=== PATIENT | female | born 1955 | race Caucasian/White ===

== ENCOUNTER 2017-01-28 15:56 | Emergency (ER) | payer OTHER, MEDICARE, MEDICAID ==
[2017-01-28] MEDS ORDERED: KETOROLAC TROMETHAMINE 60 MG/2 ML SDV IM ONE (17:32)
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
[2017-01-28 19:24] VITALS: BP 177/93
== END 2017-01-28 19:25 | disposition home or self-care (01) ==
LOC: ER 15:56
DX: Z04.1 Encounter for examination and observation following transport accident (principal); M25.551 Pain in right hip; G89.29 Other chronic pain; F17.210 Nicotine dependence, cigarettes, uncomplicated; I10 Essential (primary) hypertension; Z98.84 Bariatric surgery status; Z88.8 Allergy status to other drugs, medicaments and biological substances
CPT/HCPCS: 99283; 96374; 73502; J1885

== ENCOUNTER 2017-06-01 05:32 | Emergency (ER) | payer OTHER, MEDICARE, MEDICAID | END 2017-06-01 05:34 | disposition left against medical advice (07) | LOC: ER 05:32 | DX: Z53.21 Procedure and treatment not carried out due to patient leaving prior to being seen by health care provider (principal) ==

== ENCOUNTER 2018-02-16 22:54 | Inpatient (IN) | payer MEDICARE, MEDICAID ==
--- NOTE | 2018-02-16 23:02 | ER Document Report ---
ED General - General Stated Complaint: UNRESPONSIVE Time Seen by Provider: 02/16/18 23:00 Mode of Arrival: Medic Information source: Patient, Emergency Med Personnel Cannot obtain history due to: Altered mental status Notes: 62-year-old female presents from home with concerns for altered mental status. Patient was noted to have been found pale minimally responsive by family patient denies any fevers or chills denies any pain, when she was initially found she was only responsive to pain stimuli she was satting 95% on room air having shallow respirations. EMS placed the patient on nasal cannula and nonrebreather Upon arrival patient is noted to have nasal trumpet in does answer my questions appropriately but is quite drowsy she is protecting her airway Review of patient's home medications in her system to no use of oxycodone Xanax Abilify ems unable ot find any bottles except for vit d, but patient did fill her meds today. pt denies taking anything tonight except her neurontin. denies any SI TRAVEL OUTSIDE OF THE [place] IN LAST 30 DAYS: No - HPI Onset: Just prior to arrival Onset/Duration: Sudden Quality of pain: No pain Severity: Moderate Pain Level: Denies Associated symptoms: Slow to respond, Weakness Exacerbated by: Denies Relieved by: Denies Similar symptoms previously: No Recently seen / treated by doctor: No - Related Data Allergies/Adverse Reactions: diphenhydramine HCl [From Benadryl] Allergy (Mild, Verified 01/11/13 11:53) leg cramps haloperidol [From Haldol] Adverse Reaction (Mild, Verified 01/11/13 11:53) leg cramps haloperidol lactate [From Haldol] Adverse Reaction (Mild, Verified 01/11/13 11: 53) leg cramps Past Medical History - Social History Smoking Status: Current Every Day Smoker Cigarette use (# per day): Yes Chew tobacco use (# tins/day): No Smoking Education Provided: No Family History: Arthritis, CAD, CVA, Hyperlipidemia, Hypertension, Malignancy, Thyroid Disfunction - Past Medical History Cardiac Medical History: Reports: Hx Hypertension Denies: Hx Heart Attack Pulmonary Medical History: Denies: Hx Asthma Neurological Medical History: Reports: Hx Migraine. Denies: Hx Seizures Renal/ Medical History: Reports: Hx Ovarian Cysts. Denies: Hx Peritoneal Dialysis GI Medical History: Reports: Hx Colonoscopy, Hx Endoscopy. Denies: Hx Hiatal Hernia, Hx Ulcer Musculoskeltal Medical History: Reports Hx Arthritis, Reports Hx Musculoskeletal Deformity, Reports Hx Musculoskeletal Trauma Psychiatric Medical History: Reports: Hx Anxiety, Hx Attention Deficit Hyperactivity Disorder, Hx Bipolar Disorder, Hx Depression Traumatic Medical History: Reports: Hx Fractures Past Surgical History: Reports: Hx Abdominal Surgery - gastric bypass, Hx Adenoidectomy, Hx Appendectomy, Hx Breast Surgery - reduction, Hx Section - x 2, Hx Cholecystectomy, Hx Gastric Bypass Surgery, Hx Hysterectomy, Hx Orthopedic Surgery - knees x 2, Hx Tonsillectomy. Denies: Hx Mastectomy, Hx Open Heart Surgery, Hx Pacemaker - Immunizations Immunizations up to date: No Hx Diphtheria, Pertussis, Tetanus Vaccination: Yes Review of Systems - Review of Systems Notes: REVIEW OF SYSTEMS: Per EMS CONSTITUTIONAL : Denies fever, chills, or sweats. Denies recent illness. EENT: Denies eye, ear, throat, or mouth pain or symptoms. Denies nasal or sinus congestion or discharge. Denies throat, tongue, or mouth swelling or difficulty swallowing. CARDIOVASCULAR: Denies chest pain. Denies palpitations or racing or irregular heart beat. Denies ankle edema. RESPIRATORY: Difficulty breathing GASTROINTESTINAL: Denies abdominal pain or distention. Denies nausea, vomiting , or diarrhea. Denies blood in vomitus, stools, or per rectum. Denies black, tarry stools. Denies constipation. GENITOURINARY: Denies difficulty urinating, painful urination, burning, frequency, blood in urine, or discharge. FEMALE GENITOURINARY: Denies vaginal bleeding, heavy or abnormal periods, irregular periods. Denies vaginal discharge or odor. MUSCULOSKELETAL: Denies back or neck pain or stiffness. Denies joint pain or swelling. SKIN: Denies rash, lesions or sores. HEMATOLOGIC : Denies easy bruising or bleeding. LYMPHATIC: Denies swollen, enlarged glands. NEUROLOGICAL: Patient is quite drowsy PSYCHIATRIC: Denies anxiety or stress. Denies depression, suicidal ideation, or homicidal ideation. ALL OTHER SYSTEMS REVIEWED AND NEGATIVE. PHYSICAL EXAMINATION: GENERAL: Patient is noted to be drowsy but is alert and oriented when asked questions. HEAD: Atraumatic, normocephalic. EYES: Pupils equal round and reactive to light, extraocular movements intact, conjunctiva are normal. ENT: Nares patent, oropharynx clear without exudates. Moist mucous membranes. NECK: Normal range of motion, supple without lymphadenopathy LUNGS: Breath sounds clear to auscultation bilaterally and equal. No wheezes rales or rhonchi. HEART: Regular rate and rhythm without murmurs ABDOMEN: Soft, nontender, nondistended abdomen. No guarding, no rebound. No masses appreciated. Female : deferred Musculoskeletal: Normal range of motion, no pitting or edema. No cyanosis. NEUROLOGICAL: Cranial nerves grossly intact. Normal speech, normal gait. Normal sensory, motor exams GCS 10 PSYCH: Normal mood, normal affect. SKIN: Warm, Dry, normal turgor, no rashes or lesions noted. Dictation was performed using [employer] voice recognition software Physical Exam - Vital signs Vitals: Resp Pulse Ox 18 100 02/16/18 22:58 02/16/18 22:58 Course - Re-evaluation Re-evalutation: 02/16/18 23:07 bs is 162, pt will have septic workup and ct head to rule out any abnormalities but with improvement of mentation probably medication related. 02/16/18 23:32 Daughter presents noting that patient has had multiple similar episodes in the past due to overdose both intentional and accidental. 02/17/18 02:07 pts workup benign except for uti, i beleive this is still secondary to overdose as patient admits to taking pills. awaiting call back from hopsitalist. - Vital Signs Vital signs: Temp Pulse Resp BP Pulse Ox 14 106/73 100 02/17/18 01:00 02/17/18 01:00 02/17/18 01:00 - Laboratory Result Diagrams: 02/16/18 23:02 02/16/18 23:02 Laboratory results interpreted by me: 02/16/18 02/16/18 02/16/18 23:02 23:02 23:02 RDW 14.3 H VBG pH 7.21 L VBG pCO2 67.0 H* Chloride 108 H BUN 22 H Est GFR ( Amer) 54 L Est GFR (Non-Af Amer) 45 L Glucose 48 L AST 47 H Urine Protein Urine Glucose (UA) Urine Blood Urine Nitrite Ur Leukocyte Esterase Salicylates < 1.0 L Acetaminophen < 10 L 02/17/18 00:17 RDW VBG pH VBG pCO2 Chloride BUN Est GFR ( Amer) Est GFR (Non-Af Amer) Glucose AST Urine Protein 30 H Urine Glucose (UA) 150 H Urine Blood SMALL H Urine Nitrite POSITIVE H Ur Leukocyte Esterase TRACE H Salicylates Acetaminophen Discharge - Discharge Clinical Impression: Overdose Qualifiers: Encounter type: initial encounter Injury intent: undetermined intent Qualified Code(s): T50.904A - Poisoning by unspecified drugs, medicaments and biological substances, undetermined, initial encounter UTI (urinary tract infection) Qualifiers: Urinary tract infection type: site unspecified Hematuria presence: without hematuria Qualified Code(s): N39.0 - Urinary tract infection, site not specified Condition: Fair Disposition: ADMITTED INPATIENT Admitting Provider: Hospitalist Unit Admitted: ICU Referrals: AYALA KNAPP MD [ACTIVE STAFF] - Follow up as needed
[2018-02-16 23:32] LABS: VENOUS BLOOD BASE EXCESS -2.9 mmol/L; VENOUS BLOOD HCO3 26.4 mmol/L (20-32); VENOUS BLOOD PH 7.21 (7.30-7.42)
[2018-02-16 23:35] LABS: ABSOLUTE BASOPHILS # (AUTO) 0.1 10^3/uL (0.0-0.2); ABSOLUTE EOSINOPHILS # (AUTO) 0.1 10^3/uL (0.0-0.6); ABSOLUTE LYMPHOCYTES (AUTO) 1.7 10^3/uL (0.5-4.7); ABSOLUTE MONOCYTES (AUTO) 0.7 10^3/uL (0.1-1.4); ABSOLUTE NEUT (AUTO) 3.4 10^3/uL (1.7-8.2); BASOPHILS % (AUTO) 1.1 % (0-2); EOSINOPHILS % (AUTO) 1.5 % (0-6); HEMATOCRIT 40.1 % (36.0-47.0); HEMOGLOBIN 13.7 g/dL (12.0-15.5); LYMPHOCYTES % (AUTO) 28.4 % (13-45); MEAN CORPUSCULAR HEMOGLOBIN 31.3 pg (27.0-33.4); MEAN CORPUSCULAR HGB CONC 34.2 g/dL (32.0-36.0); MEAN CORPUSCULAR VOLUME 92 fl (80-97); MONOCYTES % (AUTO) 12.2 % (3-13); PLATELET COUNT 252 10^3/uL (150-450); RED BLOOD COUNT 4.37 10^6/uL (3.72-5.28); RED CELL DISTRIBUTION WIDTH 14.3 % (11.5-14.0); SEGMENTED NEUTROPHILS % (AUTO) 56.8 % (42-78); TOTAL CELLS COUNTED % (AUTO) 100 %
--- NOTE | 2018-02-16 23:38 | RADIOLOGY REPORT (SQ) ---
PROCEDURE: CT of the head without contrast HISTORY: altered Indication: Altered mental status Comparison: 02/22/2015 Technique: CT of the head was done without intravenous contrast was done in the orthogonal planes. This exam was performed according to our departmental dose-optimization program, which includes automated exposure control, adjustment of the mA and/or KV according to the patient's size and/or use of iterative reconstruction technique. FINDINGS: There is no intracranial hemorrhage, midline shift mass effect or acute focal infarct. There is mild chronic small vessel white matter ischemic change in the bilateral cerebral hemispheres in a periventricular distribution If clinical concern exists regarding an acute ischemic/vascular pathology being responsible for patient's symptomatology, an MRI of the brain is more sensitive than the current study, in ruling out such a possibility. There is good morales/white matter differentiation. The ventricular system is normal. The mastoid air cells are unremarkable. The patient is intubated . The paranasal sinuses are unremarkable . There is no visualization of acute fractures involving the calvarium or the skull base. IMPRESSION: There is no acute intracranial abnormality. There is mild chronic small vessel white matter ischemic change in the bilateral cerebral hemispheres in a periventricular distribution
--- NOTE | 2018-02-16 23:40 | RADIOLOGY REPORT (SQ) ---
EXAM DESCRIPTION: XR CHEST 1 VIEW COMPLETED DATE/TME: 02/16/2018 23:01 CLINICAL HISTORY: 62 years Female, altered mental status COMPARISON: None. NUMBER OF VIEWS/TECHNIQUE: 1/AP FINDINGS: Adequate lung volume, clear parenchyma, normal cardiac silhouette, right upper abdominal clips, and intact bony thorax. IMPRESSION: No acute cardiopulmonary findings.
[2018-02-16 23:43] LABS: INTERNATIONAL RATION (INR) 0.94
[2018-02-17] LABS: ALANINE AMINOTRANSFERASE 40 U/L (9-52); ALBUMIN 4.1 g/dL (3.5-5.0); ALKALINE PHOSPHATASE 98 U/L (38-126); ANION GAP 8 (5-19); ASPARTATE AMINO TRANSFERASE 47 U/L (14-36); BILIRUBIN,DIRECT 0.3 mg/dL (0.0-0.4); BILIRUBIN,TOTAL 0.4 mg/dL (0.2-1.3); BLOOD UREA NITROGEN 22 mg/dL (7-20); CALCIUM 9.2 mg/dL (8.4-10.2); CARBON DIOXIDE 28 mmol/L (22-30); CHLORIDE 108 mmol/L (98-107); GLUCOSE 48 mg/dL (75-110); POTASSIUM 3.8 mmol/L (3.6-5.0); SODIUM 144.1 mmol/L (137-145); TOTAL PROTEIN 7.2 g/dL (6.3-8.2)
[2018-02-17 00:04] LABS: ACETAMINOPHEN < 10 ug/mL (10-30); SALICYLATE < 1.0 mg/dL (2.0-20.0)
[2018-02-17 01:07] LABS: APPEARANCE,URINE CLEAR; BILIRUBIN,URINE NEGATIVE (NEGATIVE); COLOR,URINE AMBER; GLUCOSE, URINE 150 mg/dL (NEGATIVE); KETONES,URINE NEGATIVE (NEGATIVE); LEUKOCYTE ESTERASE,URINE TRACE (NEGATIVE); NITRITE,URINE POSITIVE (NEGATIVE); PROTEIN,URINE 30 mg/dL (NEGATIVE); URINE SPECIFIC GRAVITY 1.015; UROBILINOGEN,URINE NEGATIVE mg/dL (<2.0)
[2018-02-17 01:21] LABS: URINE AMPHETAMINES SCREEN UNCONFIRMED POSITIVE; URINE BARBITURATES SCREEN NEGATIVE; URINE BENZODIAZEPINES SCREEN NEGATIVE; URINE COCAINE SCREEN NEGATIVE; URINE MARIJUANA (THC) SCREEN NEGATIVE; URINE METHADONE SCREEN NEGATIVE; URINE PHENCYCLIDINE SCREEN NEGATIVE
[2018-02-17] MEDS ORDERED: CEFTRIAXONE INJ 1000 MG VIAL IV ONE (01:32)
[2018-02-17 02:03] LABS: CREATINE KINASE MB 0.88 ng/mL (<4.55)
[2018-02-17 02:05] LABS: TROPONIN I < 0.012 ng/mL
[2018-02-17] MEDS ORDERED: DEXTROSE 50%-WATER 25 GM/50 ML DISP.SYRIN IV ONE (02:14)
[2018-02-17] MEDS ORDERED: ACETAMINOPHEN 325 MG TABLET PO PRN (02:14)
[2018-02-17] MEDS ORDERED: DEXTROSE 50%-WATER 25 GM/50 ML DISP.SYRIN IV PRN ×2 (02:14)
[2018-02-17] MEDS ORDERED: DEXTROSE 40% GEL 15 GM TUBE PO PRN ×2 (02:14)
[2018-02-17] MEDS ORDERED: GLUCAGON,HUMAN RECOMB 1 MG INJ IM PRN (02:14)
[2018-02-17] MEDS ORDERED: NORMAL SALINE 1000 ML 1,000 ML IV SCH (02:15)
[2018-02-17 02:50] LABS: ALANINE AMINOTRANSFERASE 42 U/L (9-52); ALBUMIN 4.1 g/dL (3.5-5.0); ALKALINE PHOSPHATASE 104 U/L (38-126); ANION GAP 11 (5-19); ASPARTATE AMINO TRANSFERASE 36 U/L (14-36); BILIRUBIN,DIRECT 0.4 mg/dL (0.0-0.4); BILIRUBIN,TOTAL 0.5 mg/dL (0.2-1.3); BLOOD UREA NITROGEN 24 mg/dL (7-20); CALCIUM 9.5 mg/dL (8.4-10.2); CARBON DIOXIDE 25 mmol/L (22-30); CHLORIDE 109 mmol/L (98-107); GLUCOSE 99 mg/dL (75-110); SODIUM 145.4 mmol/L (137-145); TOTAL PROTEIN 7.1 g/dL (6.3-8.2)
[2018-02-17 02:58] LABS: POTASSIUM 4.9 mmol/L (3.6-5.0)
--- NOTE | 2018-02-17 04:19 | PDOC H&P ---
History of Present Illness Admission Date/PCP: 02/17/18 02:25 Patient complains of: Altered mental status History of Present Illness: MORRIS XAVIER is a 62 year old female with a history of anxiety depression, prescription medication abuse with overdose. Patient presents with altered mental status after telling her friend to change her underwear before she goes to the emergency room. Patient recently refilled several medications from Dr. Perez including Abilify and Klonopin. Both bottles were found empty. Patient' s daughter at bedside states multiple previous episodes. In the emergency room she is protecting her airway and unresponsive to noxious stimuli, placed on BiPAP and referred to the hospitalist for admission. Past Medical History Cardiac Medical History: Reports: Hypertension Denies: Myocardial Infarction Pulmonary Medical History: Denies: Asthma Neurological Medical History: Reports: Migraine Denies: Seizures GI Medical History: Denies: Hiatal Hernia Musculoskeltal Medical History: Reports: Arthritis Psychiatric Medical History: Reports: Attention Deficit Hyperactivity Disorder, Bipolar Disorder, Depression Hematology: Denies: Anemia, Sickle Cell Disease Past Surgical History Past Surgical History: Reports: Adenoidectomy, Appendectomy, Section - x 2, Cholecystectomy, Gastric Bypass Surgery, Hysterectomy, Orthopedic Surgery - knees x 2, Tonsillectomy Denies: Amputation, Mastectomy, Pacemaker Social History Information Source: Relative, [facility] Records Smoking Status: Current Every Day Smoker Hx Prescription Drug Abuse: Yes - Advance Directive Resuscitation Status: Full Code Family History Family History: Arthritis, CAD, CVA, Hyperlipidemia, Hypertension, Malignancy, Thyroid Disfunction Parental Family History Reviewed: No - Unobtainable Children Family History Reviewed: No - Unobtainable Sibling(s) Family History Reviewed.: No - Unobtainable Medication/Allergy Home Medications: Duloxetine HCl [Cymbalta] 60 mg PO BID 07/06/11 Eszopiclone [Lunesta] 3 mg PO QHS 07/06/11 Alprazolam [Xanax] 2 mg PO BIDP PRN 05/26/15 Aripiprazole [Abilify] 5 mg PO DAILY 05/26/15 Dextroamphetamine/Amphetamine [Adderall 20 mg Tablet] 20 mg PO TID 05/26/15 Gabapentin [Neurontin 300 mg Capsule] 600 mg PO QID 05/26/15 Ibuprofen [Motrin 800 mg Tablet] 800 mg PO QID 05/26/15 Oxycodone HCl 1 tab PO BID 05/26/15 Oxycodone HCl [Oxycontin] 1 tab PO Q6H 05/26/15 Oxycodone HCl/Acetaminophen [Percocet 5-325 mg Tablet] 1 - 2 tab PO ASDIR PRN # 15 tablet 05/26/15 Allergies/Adverse Reactions: diphenhydramine HCl [From Benadryl] Allergy (Mild, Verified 01/11/13 11:53) leg cramps haloperidol [From Haldol] Adverse Reaction (Mild, Verified 01/11/13 11:53) leg cramps haloperidol lactate [From Haldol] Adverse Reaction (Mild, Verified 01/11/13 11: 53) leg cramps Review of Systems ROS unobtainable: Due to mental status - Unobtainable Constitutional: ABSENT: chills, fever(s), headache(s), weight gain, weight loss Eyes: ABSENT: visual disturbances Ears: ABSENT: hearing changes Cardiovascular: ABSENT: chest pain, dyspnea on exertion, edema, orthropnea, palpitations Respiratory: ABSENT: cough, hemoptysis Gastrointestinal: ABSENT: abdominal pain, constipation, diarrhea, hematemesis, hematochezia, nausea, vomiting Genitourinary: ABSENT: dysuria, hematuria Musculoskeletal: ABSENT: joint swelling Integumentary: ABSENT: rash, wounds Neurological: ABSENT: abnormal gait, abnormal speech, confusion, dizziness, focal weakness, syncope Psychiatric: ABSENT: anxiety, depression, homidical ideation, suicidal ideation Endocrine: ABSENT: cold intolerance, heat intolerance, polydipsia, polyuria Hematologic/Lymphatic: ABSENT: easy bleeding, easy bruising Physical Exam Vital Signs: Temp Pulse Resp BP Pulse Ox 15 111/75 100 02/17/18 03:01 02/17/18 03:01 02/17/18 03:01 General appearance: PRESENT: mild distress. ABSENT: cooperative, disheveled Head exam: PRESENT: atraumatic, normocephalic Eye exam: PRESENT: conjunctiva pink, EOMI, PERRLA. ABSENT: scleral icterus Ear exam: PRESENT: normal external ear exam Mouth exam: PRESENT: moist, tongue midline Neck exam: ABSENT: carotid bruit, JVD, lymphadenopathy, thyromegaly Respiratory exam: PRESENT: clear to auscultation lashay. ABSENT: rales, rhonchi, wheezes Cardiovascular exam: PRESENT: RRR. ABSENT: diastolic murmur, rubs, systolic murmur Pulses: PRESENT: normal dorsalis pedis pul Vascular exam: PRESENT: normal capillary refill GI/Abdominal exam: PRESENT: normal bowel sounds, soft. ABSENT: distended, guarding, mass, organolmegaly, rebound, tenderness Rectal exam: PRESENT: deferred Extremities exam: PRESENT: full ROM. ABSENT: calf tenderness, clubbing, pedal edema Neurological exam: PRESENT: altered, reflexes normal, CN II-XII grossly intact. ABSENT: motor sensory deficit Psychiatric exam: PRESENT: flat affect Focused psych exam: PRESENT: other - Sedated Skin exam: PRESENT: dry, intact, warm. ABSENT: cyanosis, rash Results Impressions: Chest X-Ray 02/16/18 23:01 IMPRESSION: No acute cardiopulmonary findings. Head CT 02/16/18 23:01 IMPRESSION: There is no acute intracranial abnormality. There is mild chronic small vessel white matter ischemic change in the bilateral cerebral hemispheres in a periventricular distribution Assessment & Plan - Diagnosis (1) Overdose Qualifiers: Encounter type: initial encounter Injury intent: undetermined intent Qualified Code(s): T50.904A - Poisoning by unspecified drugs, medicaments and biological substances, undetermined, initial encounter Is this a current diagnosis for this admission?: Yes Plan: Unremarkable EKG and cardiac enzymes. Supportive care in ICU for likely Klonopin and Abilify overdose. Intubation as needed airway protection (2) Hypoglycemia Is this a current diagnosis for this admission?: Yes Plan: Reevaluate chemistry, hypoglycemic protocol initiated (3) Depression Is this a current diagnosis for this admission?: Yes Plan: Mental health and discharge planning consult for IVC and placement - Time Time Spent: 50 to 70 Minutes - Inpatient Certification Medical Necessity: Need Close Monitoring Due to Risk of Patient Decompensation
[2018-02-17] MEDS: HEPARIN SOD (PORCINE) 5,000 UNIT/ML 1 ML SYRINGE SUBCUT SCH ×2 (05:32→13:35)
[2018-02-17 07:32] LABS: ABSOLUTE BASOPHILS # (AUTO) 0.1 10^3/uL (0.0-0.2); ABSOLUTE EOSINOPHILS # (AUTO) 0.1 10^3/uL (0.0-0.6); ABSOLUTE LYMPHOCYTES (AUTO) 1.9 10^3/uL (0.5-4.7); ABSOLUTE MONOCYTES (AUTO) 0.9 10^3/uL (0.1-1.4); EOSINOPHILS % (AUTO) 1.3 % (0-6); HEMATOCRIT 38.5 % (36.0-47.0); HEMOGLOBIN 13.2 g/dL (12.0-15.5); LYMPHOCYTES % (AUTO) 24.2 % (13-45); MEAN CORPUSCULAR HEMOGLOBIN 31.7 pg (27.0-33.4); MEAN CORPUSCULAR HGB CONC 34.2 g/dL (32.0-36.0); MEAN CORPUSCULAR VOLUME 93 fl (80-97); MONOCYTES % (AUTO) 10.8 % (3-13); PLATELET COUNT 228 10^3/uL (150-450); RED BLOOD COUNT 4.16 10^6/uL (3.72-5.28); RED CELL DISTRIBUTION WIDTH 14.2 % (11.5-14.0); SEGMENTED NEUTROPHILS % (AUTO) 62.7 % (42-78); TOTAL CELLS COUNTED % (AUTO) 100 %; WHITE BLOOD COUNT 8.1 10^3/uL (4.0-10.5)
[2018-02-17 07:56] LABS: ALANINE AMINOTRANSFERASE 39 U/L (9-52); ALBUMIN 3.4 g/dL (3.5-5.0); ALKALINE PHOSPHATASE 99 U/L (38-126); ANION GAP 9 (5-19); ASPARTATE AMINO TRANSFERASE 27 U/L (14-36); BILIRUBIN,DIRECT 0.4 mg/dL (0.0-0.4); BILIRUBIN,TOTAL 0.4 mg/dL (0.2-1.3); BLOOD UREA NITROGEN 22 mg/dL (7-20); CARBON DIOXIDE 26 mmol/L (22-30); CHLORIDE 110 mmol/L (98-107); GLUCOSE 86 mg/dL (75-110); POTASSIUM 4.5 mmol/L (3.6-5.0); TOTAL PROTEIN 6.1 g/dL (6.3-8.2)
[2018-02-17] MEDS ORDERED: IPRATROPIUM/ALBUTEROL 0.5-2.5 MG/3 ML AMPUL NEB SCH (08:00)
[2018-02-17 08:02] LABS: CREATINE KINASE MB 0.82 ng/mL (<4.55)
[2018-02-17 08:07] LABS: TROPONIN I < 0.012 ng/mL
--- NOTE | 2018-02-17 09:38 | EKG REPORT ---
SEVERITY:- ABNORMAL ECG - SINUS RHYTHM LAD, CONSIDER LEFT ANTERIOR FASCICULAR BLOCK LEFT VENTRICULAR HYPERTROPHY : Confirmed by: Freya Maloney 17-Feb-2018 09:37:41
[2018-02-17] MEDS ORDERED: DOCUSATE SODIUM 100 MG CAPSULE PO SCH (10:00)
--- NOTE | 2018-02-17 13:51 | PSYCHOLOGICAL NOTE ---
Psych Note - Psych Note Psych Note: Reason for consult:overdose, unknown intent MORRIS XAVIER is a 62 year old female with a history of anxiety depression, prescription medication abuse with overdose. Patient disclosed she arrived to [facility] via EMS because "they said they could not wake me up." Patient denies overdosing on any medications stating that she had not slept the night before so ended up taking 2 of her Neurontin and 2 of her Klonopin before falling asleep. Patient discloses that she sees Dr. Yoon at [facility] for her mental health and "Dr. Miranda" as her primary physician. When asked about her empty pill bottles patient disclosed that she regularly empties her medications into a different bottle in her medicine bag. Behavioral health team contacted patient's daughter, pls see mental health note. It is copied below also This teletypewriter operator spoke with patients daughter Jael ([phone]) who reports that patient has a histoy of misusing medications and abusing pain medications and Benzodiazepines. Per Jael, patient was seeing Dr. Whitman for pain medications until he stopped practicing and has not taken any pain medications in 4 weeks. Per Jael the patient has a diagnosis of Bi-polar and has had 4/5 overdoses over approximately the past 10 years, although she has only been inpatient once at [facility] about 5 years ago. Jael reports her mother does hide her medications because she has had people steal them before. Per Jael her mother will not sleep for days, when she finally does sleep its for 24 hours at a time and she is extremely hard to arouse. Last time jael spoke to her mother was yesterday and she seemed fine. Jael reports that the patient would admit to taking more medications if she truely did. She has in the past. Jael reports that she does not believe her mother intentionally took to many pills. She has a history of forgetting she already took medications , and takes more. Jael agreed to having oversight of her mothers medications and only giving her a weeks worth at a time. Patient is alert and orientated to person, place, time and circumstance. Mood is euthymic with congruent affect. Patient denies suicidal and homicidal ideation. Delusions are absent behaviors congruent with intact reality based presentation i.e. organized and linear thought processes. Eye contact was well- maintained. Conversational speech was within normal rate, tone and prosody. Intellectual abilities appear to be within the average range. Attention and concentration were good. Insight, judgment, impulse control appear to be fair. Head CT 02/16/18 23:01 IMPRESSION: There is mild chronic small vessel white matter ischemic change in the bilateral cerebral hemispheres in a periventricular distribution No medication recommendations at this time Diagnosis 292.9 (F11.99) unspecified opiate related disorder per history provided by patient's family 292.9 (1 3.99) unspecified benzodiazepine related disorder per history provided by patient's family R/O 799.59 (R41.9) unspecified neurocognitive disorder Impression/Plan: Patient is cleared from acute psychiatric services. Patient denies suicidal ideation and denies overdose. There is some concern the patient unintentionally overdosed; the patent's daughter disclosed that the patient will sometime takes her medication but then forgets and takes it again. Patient's head CT indicating its mild chronic small vessel white matter ischemia change. It is recommended the patient follow-up with neurology. Patient's daughter disclosed she will be part of the patient's discharge plan to ensure she does not have access to her medications and will assist in getting her appointments to include going to a neurologist. She denies having any concerns for the patient. Dr. Jensen was consulted on the care and management of this patient;attending physician is in agreement with recommendations and disposition.
[2018-02-17 14:12] VITALS: BP 92/71
[2018-02-17 14:17] LABS: CREATINE KINASE MB 0.62 ng/mL (<4.55); TROPONIN I < 0.012 ng/mL
--- NOTE | 2018-02-17 20:19 | PDOC DISCHARGE SUMMARY ---
General - Admit/Disc Date/PCP Admission Date/Primary Care Provider: 02/17/18 02:25 Discharge Date: 02/17/18 - Discharge Diagnosis (1) Hypoglycemia Is this a current diagnosis for this admission?: Yes (2) Overdose Is this a current diagnosis for this admission?: Yes (3) Depression Is this a current diagnosis for this admission?: Yes - Additional Information Resuscitation Status: Full Code Home Medications: Eszopiclone [Lunesta] 3 mg PO QHS 07/06/11 Ibuprofen [Motrin 800 mg Tablet] 800 mg PO TID 05/26/15 Aripiprazole [Abilify 10 mg Tablet] 10 mg PO DAILY 02/17/18 Clonazepam [Klonopin 1 mg Tablet] 1 mg PO Q8HP PRN 02/17/18 Duloxetine HCl [Cymbalta] 30 mg PO TID 02/17/18 Gabapentin [Neurontin] 800 mg PO QID 02/17/18 History of Present Illness History of Present Illness: MORRIS XAVIER is a 62 year old female admitted earlier today by Dr. Spivey for drug overdose with prescription pills. She admitted to ICU on today for BiPAP. She was seen by psychiatry and cleared from acute psychiatry services. Patient then stated she was feeling better and wanted to leave the hospital. She was advised to remain in the hospital for continued monitoring but she declined. She was alert and oriented when I saw her in the ICU, understood her condition was grave and that she could without appropriate monitoring, and she verbalized understanding. Patient signed out AGAINST MEDICAL ADVICE. Physical Exam Vital Signs: Temp Pulse Resp BP Pulse Ox 99.5 F 58 L 20 92/71 L 97 02/17/18 14:00 02/17/18 09:00 02/17/18 14:00 02/17/18 13:13 02/17/18 14:00 Intake & Output 02/16/18 02/17/18 02/18/18 06:59 06:59 06:59 Output Total 350 535 Balance -350 -535 Weight 63.5 kg Results Laboratory Results: 02/17/18 07:14 02/17/18 07:14 02/17/18 02/17/18 07:14 07:14 WBC 8.1 RBC 4.16 Hgb 13.2 Hct 38.5 MCV 93 MCH 31.7 MCHC 34.2 RDW 14.2 H Plt Count 228 Seg Neutrophils % 62.7 Lymphocytes % 24.2 Monocytes % 10.8 Eosinophils % 1.3 Basophils % 1.0 Absolute Neutrophils 5.0 Absolute Lymphocytes 1.9 Absolute Monocytes 0.9 Absolute Eosinophils 0.1 Absolute Basophils 0.1 Sodium 145.0 Potassium 4.5 Chloride 110 H Carbon Dioxide 26 Anion Gap 9 BUN 22 H Creatinine 0.83 Est GFR ( Amer) > 60 Est GFR (Non-Af Amer) > 60 Glucose 86 Calcium 9.0 Total Bilirubin 0.4 AST 27 ALT 39 Alkaline Phosphatase 99 Total Protein 6.1 L Albumin 3.4 L 02/17/18 02/17/18 02/17/18 07:14 07:14 13:20 Creatine Kinase 49 40 CK-MB (CK-2) 0.82 Troponin I < 0.012 02/17/18 13:20 Creatine Kinase CK-MB (CK-2) 0.62 Troponin I < 0.012 Impressions: Chest X-Ray 02/16/18 23:01 IMPRESSION: No acute cardiopulmonary findings. Head CT 02/16/18 23:01 IMPRESSION: There is no acute intracranial abnormality. There is mild chronic small vessel white matter ischemic change in the bilateral cerebral hemispheres in a periventricular distribution Qualifiers - * PATIENT BEING DISCHARGED WITH ANY OF THE FOLLOWING DIAGNOSIS: No
== END 2018-02-17 14:50 | disposition left against medical advice (07) | DRG 918 ==
LOC: ER 22:54 → EH 02-17 02:25 → ICU 02-17 04:10
PROVIDERS: ADMIT Internal Medicine; ATTEND Internal Medicine
PROC: 5A09357 Assistance with Respiratory Ventilation, Less than 24 Consecutive Hours, Continuous Positive Airway Pressure (ICD-10-PCS; principal; 2018-02-17)
DX: T42.6X1A Poisoning by other antiepileptic and sedative-hypnotic drugs, accidental (unintentional), initial encounter (principal); N39.0 Urinary tract infection, site not specified; E16.0 Drug-induced hypoglycemia without coma; T42.4X1A Poisoning by benzodiazepines, accidental (unintentional), initial encounter; Y92.019 Unspecified place in single-family (private) house as the place of occurrence of the external cause; F31.9 Bipolar disorder, unspecified; F41.9 Anxiety disorder, unspecified; I10 Essential (primary) hypertension; G43.909 Migraine, unspecified, not intractable, without status migrainosus; M19.90 Unspecified osteoarthritis, unspecified site; F90.9 Attention-deficit hyperactivity disorder, unspecified type; F17.210 Nicotine dependence, cigarettes, uncomplicated; Z79.899 Other long term (current) drug therapy; Z90.49 Acquired absence of other specified parts of digestive tract; Z98.84 Bariatric surgery status; Z90.710 Acquired absence of both cervix and uterus; Z88.8 Allergy status to other drugs, medicaments and biological substances; Z82.61 Family history of arthritis; Z82.49 Family history of ischemic heart disease and other diseases of the circulatory system; Z82.3 Family history of stroke; Z80.9 Family history of malignant neoplasm, unspecified; Z83.42 Family history of familial hypercholesterolemia
CPT/HCPCS: 36415; 70450; 71045; 80053; 80307; 81001; 82550; 82553; 82803; 82962; 83605; 83735; 84443; 84484; 84703; 85025; 85610; 87040; 87086; 87088; 87186; 93005; 93010; 94660; 96374; 99285; J0696; J1644; J7030; J7620

== ENCOUNTER → 2018-06-07 | Outpatient (CLI) | payer MEDICARE, MEDICAID ==
--- NOTE | 2018-06-07 18:04 | EKG REPORT ---
SEVERITY:- ABNORMAL ECG - SINUS RHYTHM LEFT ANTERIOR FASCICULAR BLOCK PROBABLE LEFT VENTRICULAR HYPERTROPHY : Confirmed by: Sobeida Colin MD 07-Jun-2018 18:04:21
== END ==
LOC: OD 15:19
PROVIDERS: ATTEND Physician Assistant Medical
DX: I44.4 Left anterior fascicular block (principal); G89.4 Chronic pain syndrome
CPT/HCPCS: 93005; 93010

== ENCOUNTER 2020-08-08 19:15 | Emergency (ER) | payer MEDICARE, MEDICAID ==
--- NOTE | 2020-08-08 19:35 | ER Document Report ---
ED Medical Screen (RME) - General Chief Complaint: Fall Stated Complaint: FALL Time Seen by Provider: 08/08/20 19:29 Primary Care Provider: SALMA COOMBS PA-C [Primary Care Provider] - Follow up as needed Notes: HPI: 64-year-old female presenting for left facial and head injury after a mechanical fall. Tripped over something at the edge of the bed fell forward striking her face on the ground no loss of consciousness. Patient states her tetanus is up-to-date. She did sustain a laceration to the left cheek. Patient denies hip injury or other complaints at this time PHYSICAL EXAMINATION: Fairly significant swelling to the left cheek is noted. There is a 3 cm laceration over the lower aspect of the left cheek. It does not appear to be through and through. Patient is able to elevate both legs in the bed without hip pain I have greeted and performed a rapid initial assessment of this patient. A comprehensive ED assessment and evaluation of the patient, analysis of test results and completion of medical decision making process will be conducted by an additional ED providers. TRAVEL OUTSIDE OF THE [place] IN LAST 30 DAYS: No - Related Data Allergies/Adverse Reactions: diphenhydramine HCl [From Benadryl] Allergy (Mild, Verified 01/11/13 11:53) leg cramps haloperidol [From Haldol] Adverse Reaction (Mild, Verified 01/11/13 11:53) leg cramps haloperidol lactate [From Haldol] Adverse Reaction (Mild, Verified 01/11/13 11:53) leg cramps Past Medical History - Past Medical History Cardiac Medical History: Reports: Hx Hypertension Denies: Hx Heart Attack Pulmonary Medical History: Denies: Hx Asthma Neurological Medical History: Reports: Hx Migraine. Denies: Hx Seizures Renal/ Medical History: Reports: Hx Ovarian Cysts. Denies: Hx Peritoneal Dialysis GI Medical History: Reports: Hx Colonoscopy, Hx Endoscopy. Denies: Hx Hiatal Hernia, Hx Ulcer Musculoskeltal Medical History: Reports Hx Arthritis, Reports Hx Musculoskeletal Deformity, Reports Hx Musculoskeletal Trauma Psychiatric Medical History: Reports: Hx Anxiety, Hx Attention Deficit Hyperactivity Disorder, Hx Bipolar Disorder, Hx Depression Traumatic Medical History: Reports: Hx Fractures Past Surgical History: Reports: Hx Abdominal Surgery - gastric bypass, Hx Adenoidectomy, Hx Appendectomy, Hx Breast Surgery - reduction, Hx Section - x 2, Hx Cholecystectomy, Hx Gastric Bypass Surgery, Hx Hysterectomy, Hx Orthopedic Surgery - knees x 2, Hx Tonsillectomy. Denies: Hx Mastectomy, Hx Open Heart Surgery, Hx Pacemaker - Immunizations Immunizations up to date: No Hx Diphtheria, Pertussis, Tetanus Vaccination: Yes Doctor's Discharge - Discharge Referrals: SALMA COOMBS PA-C [Primary Care Provider] - Follow up as needed
--- NOTE | 2020-08-08 20:47 | RADIOLOGY REPORT (SQ) ---
EXAM DESCRIPTION: CT HEAD WITHOUT IV CONTRAST COMPLETED DATE/TME: 08/08/2020 20:18 CLINICAL HISTORY: 64 years, Female, trauma COMPARISON: CT from 02/16/2018. TECHNIQUE: Axial images without IV contrast. Sagittal coronal reconstruction. Images stored on PACS. All CT scanners at this facility use dose modulation, iterative reconstruction, and/or weight based dosing when appropriate to reduce radiation dose to as low as reasonably achievable (ALARA). FINDINGS: Normal size ventricles. Mild to moderate chronic periventricular white matter hypodensities. No acute intra-axial or extra-axial melted. Paranasal sinuses, mastoid air cells and bony calvarium are unremarkable. IMPRESSION: Chronic periventricular white matter hypodensities. No acute findings. TECHNICAL DOCUMENTATION: Quality ID # [id number]: Final reports with documentation of one or more dose reduction techniques (e.g., Automated exposure control, adjustment of the mA and/or kV according to patient size, use of iterative reconstruction technique) copyright 2010 [employer]- All Rights Reserved
[2020-08-08] MEDS ORDERED: DIPH/PERTUSS(ACELL)/TETANUS VAC/PF 0.5 ML SYR (>=10YO) IM ONE (20:51)
[2020-08-08] MEDS ORDERED: LIDOCAINE 1% INJ-PF (10 MG/ML) 30 ML SDV INJ ONE (20:51)
--- NOTE | 2020-08-08 20:51 | RADIOLOGY REPORT (SQ) ---
EXAM DESCRIPTION: CT MAXILLOFACIAL WITHOUT IV CONTRAST COMPLETED DATE/TME: 08/08/2020 20:18 CLINICAL HISTORY: 64 years, Female, trauma COMPARISON: None. TECHNIQUE: Axial images without IV contrast. Sagittal coronal reconstruction. Images stored on PACS. All CT scanners at this facility use dose modulation, iterative reconstruction, and/or weight based dosing when appropriate to reduce radiation dose to as low as reasonably achievable (ALARA). FINDINGS: No suspicious maxillofacial bone fracture. No suspicious fluid levels in the paranasal sinuses. Minimal mucosal thickening in the ethmoid air cells. Orbital structures are unremarkable. Moderate soft tissue swelling anterior to the left maxillary sinus. IMPRESSION: 1. Soft tissue injury in the left premaxillary region. 2. No suspicious fracture.
--- NOTE | 2020-08-08 20:51 | ER Document Report ---
ED Head/Face/Scalp Injury - General Chief Complaint: Facial Injury Stated Complaint: FALL Time Seen by Provider: 08/08/20 19:29 Primary Care Provider: SALMA COOMBS PA-C [Primary Care Provider] - Follow up as needed Notes: ED Medical Screen ([facility] notes - General Chief Complaint: Fall Stated Complaint: FALL Time Seen by Provider: 08/08/20 19:29 Primary Care Provider: SALMA COOMBS PA-C [Primary Care Provider] - Follow up as needed Notes: HPI: 64-year-old female presenting for left facial and head injury after a mechanical fall. Tripped over something at the edge of the bed fell forward striking her face on the ground no loss of consciousness. Patient states her tetanus is up-to-date. She did sustain a laceration to the left cheek. Patient denies hip injury or other complaints at this time PHYSICAL EXAMINATION: Fairly significant swelling to the left cheek is noted. There is a 3 cm laceration over the lower aspect of the left cheek. It does not appear to be through and through. Patient is able to elevate both legs in the bed without hip pain MY notes) 64-year-old female arrives with chief complaint of tripping and falling onto a table just prior to arrival. She says she has been here for 4 hours but actually is only been here for 1 hour according to our status. Nursing staff advised me to come see the patient because she has a hematoma to her left cheek around 5 cm diameter as well as a laceration 2-1/2 cm obliquely across her cheek. She denies any LOC but advises she does have pain to this area. CT of face within normal except for soft tissue swelling. TRAVEL OUTSIDE OF THE [place] IN LAST 30 DAYS: No - HPI Patient complains to provider of: Contusion, Laceration Injury to: Cheek Location of problem: Cheek Occurred: Just prior to arrival - Related Data Allergies/Adverse Reactions: diphenhydramine HCl [From Benadryl] Allergy (Mild, Verified 01/11/13 11:53) leg cramps haloperidol [From Haldol] Adverse Reaction (Mild, Verified 01/11/13 11:53) leg cramps haloperidol lactate [From Haldol] Adverse Reaction (Mild, Verified 01/11/13 11:53) leg cramps Home Medications: Duloxetine. Gabapentin. Eszopiclone. Aripiprazole Past Medical History - General Information source: Patient - Social History Smoking Status: Former Smoker Cigarette use (# per day): No Chew tobacco use (# tins/day): No Smoking Education Provided: No Frequency of alcohol use: Occasional Drug Abuse: None Lives with: Family Family History: Arthritis, CAD, CVA, Hyperlipidemia, Hypertension, Malignancy, Thyroid Disfunction Patient has suicidal ideation: No Patient has homicidal ideation: No - Past Medical History Cardiac Medical History: Reports: Hx Hypertension Denies: Hx Heart Attack Pulmonary Medical History: Denies: Hx Asthma Neurological Medical History: Reports: Hx Migraine. Denies: Hx Seizures Renal/ Medical History: Reports: Hx Ovarian Cysts. Denies: Hx Peritoneal Dialysis GI Medical History: Reports: Hx Colonoscopy, Hx Endoscopy. Denies: Hx Hiatal Hernia, Hx Ulcer Musculoskeletal Medical History: Reports Hx Arthritis, Reports Hx Musculoskeletal Deformity, Reports Hx Musculoskeletal Trauma Psychiatric Medical History: Reports: Hx Anxiety, Hx Attention Deficit Hyperactivity Disorder, Hx Bipolar Disorder, Hx Depression Traumatic Medical History: Reports: Hx Fractures Past Surgical History: Reports: Hx Abdominal Surgery - gastric bypass, Hx Adenoidectomy, Hx Appendectomy, Hx Breast Surgery - reduction, Hx Section - x 2, Hx Cholecystectomy, Hx Gastric Bypass Surgery, Hx Hysterectomy, Hx Orthopedic Surgery - knees x 2, Hx Tonsillectomy. Denies: Hx Mastectomy, Hx Open Heart Surgery, Hx Pacemaker - Immunizations Immunizations up to date: No Hx Diphtheria, Pertussis, Tetanus Vaccination: Yes Review of Systems - Review of Systems Constitutional: No symptoms reported EENT: See HPI, Other - Left cheek pain Cardiovascular: No symptoms reported Respiratory: No symptoms reported Gastrointestinal: No symptoms reported Genitourinary: No symptoms reported Female Genitourinary: No symptoms reported Musculoskeletal: No symptoms reported Skin: No symptoms reported Hematologic/Lymphatic: No symptoms reported Neurological/Psychological: No symptoms reported -: Yes All other systems reviewed and negative Physical Exam - Vital signs Vitals: Temp 98.7 F 08/08/20 19:40 Interpretation: Normal - General General appearance: Appears well, Alert - HEENT Head: Normocephalic, Abrasions, Open wounds, Other - Laceration to left cheek with hematoma around 5 cm diameter as well as 2.5 cm laceration that required 5 sutures with 6-0 Prolene Dermabond Steri-Strips Eyes: Normal Pupils: PERRL Nasal: Normal Mouth/Lips: Normal Mucous membranes: Normal Pharynx: Normal Neck: Normal - Respiratory Respiratory status: No respiratory distress Chest status: Nontender Breath sounds: Normal Chest palpation: Normal - Cardiovascular Rhythm: Regular Heart sounds: Normal auscultation Murmur: No - Abdominal Inspection: Normal Distension: No distension Bowel sounds: Normal Tenderness: Nontender Organomegaly: No organomegaly - Rectal Hemorrhoids: Other - Deferred - Genitourinary Bimanuel exam: Other - Deferred - Back Back: Normal, Nontender - Extremities General upper extremity: Normal inspection, Nontender, Normal color, Normal ROM, Normal temperature General lower extremity: Normal inspection, Nontender, Normal color, Normal ROM, Normal temperature, Normal weight bearing. No: Marina's sign - Neurological Neuro grossly intact: Yes Cognition: Normal Orientation: AAOx4 Cosmos Coma Scale Eye Opening: Spontaneous Robyn Coma Scale Verbal: Oriented Robyn Coma Scale Motor: Obeys Commands Cosmos Coma Scale Total: 15 Speech: Normal Motor strength normal: LUE, RUE, LLE, RLE Sensory: Normal - Psychological Associated symptoms: Normal affect, Normal mood - Skin Skin Temperature: Warm Skin Moisture: Dry Skin Color: Normal Course - Vital Signs Vital signs: Temp Pulse Resp BP Pulse Ox 98.7 F 72 20 135/94 H 98 08/08/20 19:50 08/08/20 19:50 08/08/20 19:50 08/08/20 19:50 08/08/20 19:50 - Laboratory Results Critical Laboratory Results Reviewed: No Critical Results - Radiology Results Radiology Results Interpreted: 08/08/20 21:[address] Yañez radiologist Critical Radiology Results Reviewed: Yes Attending or Supervising Physician who Reviewed Radiology: ZANA ROLAND JR Procedures - Laceration/Wound Repair Left Face Time completed: 21:26 Wound length (cm): 2.5 Wound's Depth, Shape: Linear Laceration pre-procedure: Sterile PPE donned, Shur-Clens applied Anesthetic type: 1% Lidocaine Volume Anesthetic (mLs): 1 Wound explored: Clean Wound Debrided: Minimal Wound Repaired With: Sutures, Steri-strips, Dermabond Suture Size/Type: 6:0, Prolene Number of Sutures: 5 Layer Closure?: No Post-procedure wound care: Sterile dressing applied Post-procedure NV exam normal: Yes Complications: No Discharge - Discharge Clinical Impression: Hematoma left cheek Fall Qualifiers: Encounter type: initial encounter Qualified Code(s): W19.XXXA - Unspecified fall, initial encounter Laceration of left cheek Qualifiers: Encounter type: initial encounter Qualified Code(s): S01.412A - Laceration without foreign body of left cheek and temporomandibular area, initial encounter Condition: Stable Disposition: HOME, SELF-CARE Instructions: Laceration Care ([facility]), Prophylactic Antibiotic ([facility]), Tetanus Immunization Given ([facility]) Additional Instructions: Follow-up with personal doctor next week and sutures out in around 6 days. You have 5 sutures in your left cheek as well as Dermabond and Steri-Strips. Do not attempt to remove the Steri-Strips they will follow-up by themselves. Keep wound clean and dry. Prescriptions: Cephalexin Monohydrate [Keflex 500 mg Capsule] 500 mg PO BID 5 Days #14 capsule Referrals: SALMA COOMBS PA-C [Primary Care Provider] - Follow up as needed
[2020-08-08] MEDS ORDERED: CEPHALEXIN 500 MG CAPSULE PO ONE (20:53)
--- NOTE | 2020-08-08 20:57 | RADIOLOGY REPORT (SQ) ---
EXAM DESCRIPTION: CT CERVICAL SPINE WITHOUT IV CONTRAST COMPLETED DATE/TME: 08/08/2020 20:18 CLINICAL HISTORY: 64 years, Female, . Trauma. COMPARISON: CT from 05/02/2013. TECHNIQUE: Axial images without IV contrast. Sagittal coronal reconstruction Images stored on PACS. All CT scanners at this facility use dose modulation, iterative reconstruction, and/or weight based dosing when appropriate to reduce radiation dose to as low as reasonably achievable (ALARA). FINDINGS: No evidence for fracture dislocation. No suspicious prevertebral soft tissue swelling. Mild discopathy at C5-C6. No evidence for central stenosis. Mild left foraminal stenosis C5-6. Other levels are unremarkable IMPRESSION: No acute findings. Mild degenerative changes at C5-6 centrally and on the left.
[2020-08-08 21:47] VITALS: BP 150/99
== END 2020-08-08 22:04 | disposition home or self-care (01) ==
LOC: ER 19:15
DX: S01.412A Laceration without foreign body of left cheek and temporomandibular area, initial encounter (principal); S09.90XA Unspecified injury of head, initial encounter; W01.0XXA Fall on same level from slipping, tripping and stumbling without subsequent striking against object, initial encounter; I10 Essential (primary) hypertension; Z98.84 Bariatric surgery status
CPT/HCPCS: 99284; 96372; 70450; 70486; 72125; 90715; 12011; A9270; J3490

== ENCOUNTER 2020-09-11 11:49 | Inpatient (IN) | payer MEDICARE, MEDICAID ==
--- NOTE | 2020-09-11 13:00 | RADIOLOGY REPORT (SQ) ---
EXAM DESCRIPTION: KNEE RIGHT 4 VIEWS IMAGES COMPLETED DATE/TIME: 09/11/2020 12:49 pm REASON FOR STUDY: bed 4 fall right knee pain COMPARISON: None. NUMBER OF VIEWS: Four views. TECHNIQUE: AP, lateral, and both oblique radiographic images acquired of the right knee. LIMITATIONS: None. FINDINGS: MINERALIZATION: Normal. BONES: Comminuted fracture of the distal femur just above the prosthesis. JOINT: Total knee arthroplasty. SOFT TISSUES: No soft tissue swelling. No radio-opaque foreign body. OTHER: No other significant finding. IMPRESSION: Total knee arthroplasty. Comminuted fracture of the femur just above the knee. TECHNICAL DOCUMENTATION: JOB ID: [id number] 2010 [employer]- All Rights Reserved Reading location - IP/workstation name: [email or web address]
[2020-09-11] MEDS ORDERED: MORPHINE SULFATE 10 MG/ML INJ IV ONE ×2 (13:14→14:10)
--- NOTE | 2020-09-11 13:19 | ER Document Report ---
ED Extremity Problem, Lower - General Chief Complaint: Knee Pain Stated Complaint: FALL/KNEE PAIN Time Seen by Provider: 09/11/20 13:06 Primary Care Provider: PETRONA ARGUETA MD [Primary Care Provider] - Follow up as needed Notes: Patient is a 65-year-old female presents emergency department with right leg pain. Patient states that she slipped and fell this morning. She states that she was not able to get up, but attempted to bear weight on her right leg. Denies hitting her head. She is not on blood thinners. Patient has history of a knee replacement 20 years ago. She cannot remember which doctor did it, but may be had it replaced [facility]. Patient denies any past medical history. Patient is currently on Abilify, Cymbalta, Lunesta, and Neurontin. TRAVEL OUTSIDE OF THE [place] IN LAST 30 DAYS: No - Related Data Allergies/Adverse Reactions: diphenhydramine HCl [From Benadryl] Allergy (Mild, Verified 09/11/20 12:35) leg cramps haloperidol [From Haldol] Adverse Reaction (Mild, Verified 09/11/20 12:35) leg cramps haloperidol lactate [From Haldol] Adverse Reaction (Mild, Verified 09/11/20 12:35) leg cramps Past Medical History - Social History Smoking Status: Unknown if Ever Smoked Family History: Arthritis, CAD, CVA, Hyperlipidemia, Hypertension, Malignancy, Thyroid Disfunction - Past Medical History Cardiac Medical History: Reports: Hx Hypertension Denies: Hx Heart Attack Pulmonary Medical History: Denies: Hx Asthma Neurological Medical History: Reports: Hx Migraine. Denies: Hx Seizures Renal/ Medical History: Reports: Hx Ovarian Cysts. Denies: Hx Peritoneal Dialysis GI Medical History: Reports: Hx Colonoscopy, Hx Endoscopy. Denies: Hx Hiatal Hernia, Hx Ulcer Musculoskeletal Medical History: Reports Hx Arthritis, Reports Hx Musculoskeletal Deformity, Reports Hx Musculoskeletal Trauma Psychiatric Medical History: Reports: Hx Anxiety, Hx Attention Deficit Hyperactivity Disorder, Hx Bipolar Disorder, Hx Depression Traumatic Medical History: Reports: Hx Fractures Past Surgical History: Reports: Hx Abdominal Surgery - gastric bypass, Hx Adenoidectomy, Hx Appendectomy, Hx Breast Surgery - reduction, Hx Section - x 2, Hx Cholecystectomy, Hx Gastric Bypass Surgery, Hx Hysterectomy, Hx Orthopedic Surgery - knees x 2, Hx Tonsillectomy. Denies: Hx Mastectomy, Hx Open Heart Surgery, Hx Pacemaker - Immunizations Immunizations up to date: No Hx Diphtheria, Pertussis, Tetanus Vaccination: Yes Review of Systems - Review of Systems Notes: REVIEW OF SYSTEMS: CONSTITUTIONAL : Denies recent illness. Denies recent unintentional weight loss. Denies fever, chills, or sweats. EENT: Denies eye, ear, throat, or mouth pain, discharge, or symptoms. Denies nasal or sinus congestion. CARDIOVASCULAR: Denies chest pain. RESPIRATORY: Denies shortness of breath, cough, congestion, difficulty breathing, or wheezing. GASTROINTESTINAL: Denies nausea, vomiting, and diarrhea. Denies abdominal pain. Denies constipation. GENITOURINARY: Denies difficulty urinating, burning, blood in urine, urgency or frequency. MUSCULOSKELETAL: Denies neck and back pain. See HPI. SKIN: Denies rash, itchiness, or lesions HEMATOLOGIC : Denies easy bruising or bleeding. LYMPHATIC: Denies swollen, painful, enlarged glands. NEUROLOGICAL: Denies no numbness or tingling denies weakness. Denies headache. Denies altered mental status. Denies alteration in speech. PSYCHIATRIC: Denies stress, anxiety, alteration in sleep patterns, or depression. All other systems reviewed and negative. Physical Exam - Vital signs Vitals: Temp Pulse Resp BP Pulse Ox 98.4 F 87 17 125/81 100 09/11/20 11:53 09/11/20 11:53 09/11/20 11:53 09/11/20 11:53 09/11/20 11:53 - Notes Notes: PHYSICAL EXAMINATION: GENERAL: Appears well, healthy, well-nourished, no acute distress. HEAD: Normocephalic, atraumatic. EYES: PERRL, conjunctiva normal, all extraocular movements intact, sclera nonicteric ENT: Moist mucous membranes. NECK: Supple, no noticeable swelling, redness, rash. Normal range of motion. LUNGS: Equal breath sounds bilaterally and clear to auscultation. No wheezes rales or rhonchi. CARDIOVASCULAR: S1-S2, regular rate, regular rhythm. Radial pulses 2+, normal. ABDOMEN: Normoactive bowel sounds. Soft, nontender, no guarding, no rebound tenderness, and no masses palpated. EXTREMITIES: Tenderness noted to right leg, superior to the knee. NEUROLOGICAL: Moves all extremities upon command. Strength 5/5 in all extremities. PSYCH: Normal mood, normal affect. SKIN: Warm, dry. No rash, lesions, ulcerations noted. Normal skin turgor. Course - Re-evaluation Re-evalutation: 09/11/20 13:22 Patient has a comminuted fracture of the femur, just above the knee. Dorsalis pedis pulse is 2+. I paged Dr. Mack, the orthopedic on-call. 09/11/20 13:[address] Mack, the orthopedic doctor. He would like the patient's primary care provider to admit the patient. 09/11/20 13:[address] Argueta. Since the patient does not have any medical problems, he will not admit the patient. Paged Dr. Mack back. 09/11/20 14:[address] Mack. He will take patient to surgery tonight. - Vital Signs Vital signs: Temp Pulse Resp BP Pulse Ox 98.4 F 87 17 125/81 100 09/11/20 11:53 09/11/20 11:53 09/11/20 11:53 09/11/20 11:53 09/11/20 11:53 - Laboratory Results Result Diagrams: 09/11/20 13:45 09/11/20 13:45 Laboratory Results Interpreted: 09/11/20 13:45 WBC 10.8 H Lymph % (Auto) 10.0 L Absolute Neuts (auto) 8.9 H Seg Neutrophils % 82.9 H Critical Laboratory Results Reviewed: No Critical Results - Radiology Results Critical Radiology Results Reviewed: No Critical Results Discharge - Discharge Clinical Impression: Femur fracture Qualifiers: Encounter type: initial encounter Femur location: distal, unspecified portion Fracture type: closed Fracture morphology: unspecified fracture morphology Laterality: right Qualified Code(s): S72.401A - Unspecified fracture of lower end of right femur, initial encounter for closed fracture Condition: Stable Disposition: ADMITTED INPATIENT Admitting Provider: Dr. Mack Unit Admitted: Surgical Floor Referrals: PETRONA ARGUETA MD [Primary Care Provider] - Follow up as needed
[2020-09-11 14:05] LABS: ABSOLUTE BASOPHILS # (AUTO) 0.1 10^3/uL (0.0-0.2); ABSOLUTE EOSINOPHILS # (AUTO) 0.1 10^3/uL (0.0-0.6); ABSOLUTE LYMPHOCYTES (AUTO) 1.1 10^3/uL (0.5-4.7); ABSOLUTE MONOCYTES (AUTO) 0.6 10^3/uL (0.1-1.4); ABSOLUTE NEUT (AUTO) 8.9 10^3/uL (1.7-8.2); BASOPHILS % (AUTO) 0.6 % (0-2); EOSINOPHILS % (AUTO) 0.5 % (0-6); HEMATOCRIT 37.3 % (36.0-47.0); HEMOGLOBIN 12.8 g/dL (12.0-15.5); MEAN CORPUSCULAR HEMOGLOBIN 30.2 pg (27.0-33.4); MEAN CORPUSCULAR HGB CONC 34.3 g/dL (32.0-36.0); MEAN CORPUSCULAR VOLUME 88 fl (80-97); PLATELET COUNT 226 10^3/uL (150-450); RED BLOOD COUNT 4.24 10^6/uL (3.72-5.28); SEGMENTED NEUTROPHILS % (AUTO) 82.9 % (42-78); TOTAL CELLS COUNTED % (AUTO) 100 %; WHITE BLOOD COUNT 10.8 10^3/uL (4.0-10.5)
[2020-09-11 14:24] LABS: ALBUMIN 3.7 g/dL (3.5-5.0); ALKALINE PHOSPHATASE 92 U/L (38-126); ASPARTATE AMINO TRANSFERASE 23 U/L (14-36); BILIRUBIN,DIRECT 0.2 mg/dL (0.0-0.4); BILIRUBIN,TOTAL 0.3 mg/dL (0.2-1.3); BLOOD UREA NITROGEN 15 mg/dL (7-20); CALCIUM 9.1 mg/dL (8.4-10.2); GLUCOSE 94 mg/dL (75-110); POTASSIUM 5.1 mmol/L (3.6-5.0); TOTAL PROTEIN 6.6 g/dL (6.3-8.2)
[2020-09-11 14:31] LABS: ANION GAP 5 (5-19); CARBON DIOXIDE 28 mmol/L (22-30); CHLORIDE 107 mmol/L (98-107)
--- NOTE | 2020-09-11 14:35 | RADIOLOGY REPORT (SQ) ---
EXAM DESCRIPTION: FEMUR RIGHT IMAGES COMPLETED DATE/TIME: 09/11/2020 1:59 pm REASON FOR STUDY: eval complete femur COMPARISON: None. NUMBER OF VIEWS: 8 views TECHNIQUE: Multiplanar radiographic imaging was performed of the femur and knee. LIMITATIONS: None. FINDINGS: MINERALIZATION: Normal. BONES: There is a moderately displaced comminuted fracture of the distal femoral metaphysis. The pat ient is status post total knee arthroplasty. SOFT TISSUES: A joint effusion is present. Soft tissue swelling surrounds the injury site. OTHER: No other significant finding. IMPRESSION: Moderately displaced comminuted fracture of the distal femoral metaphysis. Status post right total knee arthroplasty. TECHNICAL DOCUMENTATION: JOB ID: [id number] 2010 [employer]- All Rights Reserved Reading location - IP/workstation name: [email or web address]
[2020-09-11] MEDS ORDERED: NORMAL SALINE 1000 ML 1,000 ML IV ONE (14:45)
[2020-09-11 15:08] LABS: URINE AMPHETAMINES SCREEN NEGATIVE; URINE BARBITURATES SCREEN NEGATIVE; URINE BENZODIAZEPINES SCREEN NEGATIVE; URINE COCAINE SCREEN NEGATIVE; URINE MARIJUANA (THC) SCREEN NEGATIVE; URINE METHADONE SCREEN UNCONFIRMED POSITIVE; URINE PHENCYCLIDINE SCREEN NEGATIVE
[2020-09-11] MEDS ORDERED: ACETAMINOPHEN 325 MG TABLET PO PRN (16:06)
[2020-09-11] MEDS: HYDROMORPHONE HCL INJ/PF 2 MG/ML AMPULE IV PRN ×2 (16:49→22:14)
[2020-09-11] MEDS: NORMAL SALINE 1000 ML 1,000 ML IV PRN ×2 (16:50→18:48)
[2020-09-11] MEDS: OXYCODONE-ACETAMINOPHEN 5-325 MG TABLET PO PRN ×2 (17:56→23:02)
[2020-09-11] MEDS ORDERED: GABAPENTIN 400 MG CAPSULE PO ONE (23:00)
[2020-09-11] MEDS ORDERED: DULOXETINE HCL 30 MG CAPSULE.DR PO ONE (23:00)
[2020-09-11] MEDS ORDERED: ZOLPIDEM TARTRATE 5 MG TABLET PO ONE (23:00)
[2020-09-12] MEDS: NORMAL SALINE 1000 ML 1,000 ML IV PRN ×2 (04:05→13:35)
[2020-09-12] MEDS ORDERED: CEFAZOLIN SODIUM 2 GM in DEXTROSE 5%-WATER 100 ML IV PRN (05:00)
[2020-09-12] MEDS: OXYCODONE-ACETAMINOPHEN 5-325 MG TABLET PO PRN ×2 (05:11→21:05)
[2020-09-12] MEDS: HYDROMORPHONE HCL INJ/PF 2 MG/ML AMPULE IV PRN ×2 (06:52→10:36)
[2020-09-12] MEDS ORDERED: INFLUENZA QUAD (6MOS+) 2020-21 VAC 0.5 ML SYR IM ONE (08:00)
[2020-09-12] MEDS: ARIPIPRAZOLE 5 MG TABLET PO SCH (09:13)
[2020-09-12] MEDS: GABAPENTIN 400 MG CAPSULE PO SCH ×4 (09:14→21:04)
[2020-09-12] MEDS: DULOXETINE HCL 30 MG CAPSULE.DR PO SCH ×3 (09:14→17:21)
[2020-09-12] MEDS ORDERED: ROCURONIUM BROMIDE INJ 50 MG/5 ML VIAL IV ONE (10:42)
[2020-09-12] MEDS ORDERED: DEXAMETHASONE SOD PHOSPHATE INJ 4 MG/1 ML VIAL ONE (10:42)
[2020-09-12] MEDS ORDERED: ONDANSETRON HCL INJ/PF 4 MG/2 ML SDV ONE (10:42)
[2020-09-12] MEDS ORDERED: FENTANYL CITRATE INJ/PF 100 MCG/2 ML AMPUL ONE (13:21)
[2020-09-12] MEDS ORDERED: MIDAZOLAM 2 MG/2 ML INJ ONE (13:21)
[2020-09-12] MEDS ORDERED: PROPOFOL INJ 200 MG/20 ML VIAL IV ONE ×2 (13:21→13:53)
--- NOTE | 2020-09-12 13:52 | PDOC H&P ---
History of Present Illness Admission Date/PCP: 09/11/20 14:20 PETRONA ARGUETA MD Patient complains of: Right knee pain History of Present Illness: MORRIS XAVIER is a 65 year old female with a significant past psychiatric history. She has previously undergone a bilateral total knee arthroplasty. She cannot recall who performed her surgeries. She presented to the emergency department complaining of right knee pain following a fall at home. Radiographs demonstrated a displaced distal femoral fracture above a right total knee arthroplasty prosthesis. Past Medical History Cardiac Medical History: Reports: Hypertension Denies: Myocardial Infarction Pulmonary Medical History: Denies: Asthma Neurological Medical History: Reports: Migraine Denies: Seizures GI Medical History: Denies: Hiatal Hernia Musculoskeltal Medical History: Reports: Arthritis Psychiatric Medical History: Reports: Attention Deficit Hyperactivity Disorder, Bipolar Disorder, Depression Hematology: Denies: Anemia, Sickle Cell Disease Past Surgical History Past Surgical History: Reports: Adenoidectomy, Appendectomy, Section - x 2, Cholecystectomy, Gastric Bypass Surgery, Hysterectomy, Orthopedic Surgery - knees x 2, Tonsillectomy Denies: Amputation, Mastectomy, Pacemaker Social History Smoking Status: Current Every Day Smoker Electronic Cigarette use?: No Number of Years Smokin Last Time Smoked: 09/20/2020 Frequency of Alcohol Use: None Hx Recreational Drug Use: Yes Drugs: Marijuana Hx Prescription Drug Abuse: Yes Family History Family History: Arthritis, CAD, CVA, Hyperlipidemia, Hypertension, Malignancy, Thyroid Disfunction Parental Family History Reviewed: Yes Children Family History Reviewed: No Sibling(s) Family History Reviewed.: Yes Medication/Allergy Home Medications: Eszopiclone [Lunesta] 3 mg PO QHS 07/06/11 Aripiprazole [Abilify 10 mg Tablet] 10 mg PO DAILY 02/17/18 Clonazepam [Klonopin 1 mg Tablet] 1 mg PO Q8HP PRN 02/17/18 Duloxetine HCl [Cymbalta] 30 mg PO TID 02/17/18 Gabapentin [Neurontin] 800 mg PO QID 02/17/18 Allergies/Adverse Reactions: diphenhydramine HCl [From Benadryl] Allergy (Mild, Verified 09/11/20 12:35) leg cramps haloperidol [From Haldol] Adverse Reaction (Mild, Verified 09/11/20 12:35) leg cramps haloperidol lactate [From Haldol] Adverse Reaction (Mild, Verified 09/11/20 12:35) leg cramps Review of Systems ROS unobtainable: Other All systems: reviewed and no additional remarkable complaints except as stated - As per HPI Physical Exam Vital Signs: Temp Pulse Resp BP Pulse Ox 98.6 F 77 16 103/63 96 09/12/20 11:37 09/12/20 11:37 09/12/20 11:37 09/12/20 11:37 09/12/20 11:37 Intake & Output 09/11/20 09/12/20 09/13/20 06:59 06:59 06:59 Intake Total 2675 950 Output Total 700 Balance 1975 950 Weight 70.3 kg General appearance: PRESENT: no acute distress Head exam: PRESENT: atraumatic, normocephalic Eye exam: PRESENT: conjunctiva pink, EOMI, PERRLA. ABSENT: scleral icterus Mouth exam: PRESENT: moist, tongue midline Neck exam: PRESENT: full ROM Respiratory exam: PRESENT: clear to auscultation lashay. ABSENT: rales, rhonchi, wheezes Cardiovascular exam: PRESENT: RRR. ABSENT: diastolic murmur, rubs, systolic murmur Pulses: PRESENT: +2 pedal pulses bilateral GI/Abdominal exam: PRESENT: normal bowel sounds, soft. ABSENT: distended, guarding, mass, organolmegaly, rebound, tenderness Rectal exam: PRESENT: deferred Extremities exam: PRESENT: other - There is an obvious deformity of the right distal femur in the supracondylar region. Patient is able to dorsiflex and plantarflex her foot. Sensation is intact to touch. 2+ DP and PT pulses. Results Laboratory Results: 09/11/20 13:45 09/11/20 13:45 09/11/20 09/11/20 09/11/20 13:45 13:45 13:45 WBC 10.8 H RBC 4.24 Hgb 12.8 Hct 37.3 MCV 88 MCH 30.2 MCHC 34.3 RDW 14.0 Plt Count 226 Seg Neutrophils % 82.9 H Sodium 139.5 Potassium 5.1 H Chloride 107 Carbon Dioxide 28 Anion Gap 5 BUN 15 Creatinine 0.73 Est GFR ( Amer) > 60 Glucose 94 Calcium 9.1 Total Bilirubin 0.3 AST 23 Alkaline Phosphatase 92 Total Protein 6.6 Albumin 3.7 Blood Type A NEGATIVE Antibody Screen NEGATIVE Impressions: Knee X-Ray 09/11/20 00:00 IMPRESSION: Total knee arthroplasty. Comminuted fracture of the femur just above the knee. Femur X-Ray 09/11/20 13:40 IMPRESSION: Moderately displaced comminuted fracture of the distal femoral metaphysis. Status post right total knee arthroplasty. Assessment & Plan - Diagnosis (1) Right knee pain Qualifiers: Chronicity: acute Qualified Code(s): M25.561 - Pain in right knee Is this a current diagnosis for this admission?: Yes (2) Closed supracondylar fracture of right femur Qualifiers: Encounter type: initial encounter Qualified Code(s): S72.451A - Displaced supracondylar fracture without intracondylar extension of lower end of right femur, initial encounter for closed fracture Is this a current diagnosis for this admission?: Yes (3) Depression Qualifiers: Depression Type: dysthymia Qualified Code(s): F34.1 - Dysthymic disorder Is this a current diagnosis for this admission?: Yes - Time Time Spent: 30 to 50 Minutes Medications reviewed and adjusted accordingly: Yes Anticipated Discharge Disposition: Retirement Facility Anticipated Discharge Timeframe: within 48 hours - Inpatient Certification Based on my medical assessment, after consideration of the patient's comorbidities, presenting symptoms, or acuity I expect that the services needed warrant INPATIENT care.: Yes I certify that my determination is in accordance with my understanding of Medicare's requirements for reasonable and necessary INPATIENT services [42 CFR 412.3e].: Yes Medical Necessity: Need for Pain Control, Need for IV Antibiotics, Need for Surgery - Plan Summary Plan Summary: Patient is a 65-year-old woman who sustained a fall resulting in a displaced supracondylar femur fracture above a well fixed total knee prosthesis. I have recommended internal fixation with an intramedullary patricio. Risk, benefits, and alternatives were discussed with the patient. Risks include the risk of with anesthesia, the risk of infection, the risk of nonunion and malunion, and the possible need for additional surgery. We have also discussed the possible need for blood transfusion. An opportunity for questions was provided to the patient. All questions were answered to her satisfaction. Patient expressed understanding and wishes to proceed.
[2020-09-12] MEDS ORDERED: HYDROMORPHONE HCL INJ/PF 2 MG/ML AMPULE ONE (14:12)
[2020-09-12] MEDS ORDERED: MORPHINE SULFATE 10 MG/ML INJ IV PRN (14:39)
[2020-09-12] MEDS ORDERED: DIPHENHYDRAMINE HCL 50 MG/ML VIAL IV PRN (14:39)
[2020-09-12] MEDS ORDERED: MEPERIDINE HCL/PF INJ 25 MG/1 ML DISP.SYRIN IV PRN (14:39)
[2020-09-12] MEDS ORDERED: FENTANYL CITRATE INJ/PF 100 MCG/2 ML AMPUL IV PRN ×2 (14:39)
[2020-09-12] MEDS ORDERED: ONDANSETRON HCL INJ/PF 4 MG/2 ML SDV IV PRN (14:39)
[2020-09-12] MEDS: FENTANYL CITRATE INJ/PF 100 MCG/2 ML AMPUL IV PRN ×2 (16:22→16:41)
--- NOTE | 2020-09-12 16:26 | RADIOLOGY REPORT (SQ) ---
EXAM DESCRIPTION: FEMUR RIGHT; NO CHG FLUORO IMAGES COMPLETED DATE/TIME: 09/12/2020 4:13 pm REASON FOR STUDY: RIGHT FEMUR NAILING COMPARISON: None. FLUOROSCOPY TIME: 1.3 minute 4 images saved to PACS. TECHNIQUE: Intra-operative images acquired during surgical procedure to evaluate progress. NUMBER OF IMAGES: 4 LIMITATIONS: None. FINDINGS: Spot fluoroscopic images from intramedullary patricio placement in the femur. IMPRESSION: IMAGE(S) OBTAINED DURING PROCEDURE. COMMENT: Quality ID [id number]: Final reports for procedures using fluoroscopy that document radiation exp osure indices, or exposure time and number of fluorographic images (if radiation exposure indices are not available) Please consult full operative report of the attending physician for description of the procedure. TECHNICAL DOCUMENTATION: JOB ID: [id number] 2010 [employer]- All Rights Reserved Reading location - IP/workstation name: [email or web address]
--- NOTE | 2020-09-12 16:26 | RADIOLOGY REPORT (SQ) ---
EXAM DESCRIPTION: FEMUR RIGHT; NO CHG FLUORO IMAGES COMPLETED DATE/TIME: 09/12/2020 4:13 pm REASON FOR STUDY: RIGHT FEMUR NAILING COMPARISON: None. FLUOROSCOPY TIME: 1.3 minute 4 images saved to PACS. TECHNIQUE: Intra-operative images acquired during surgical procedure to evaluate progress. NUMBER OF IMAGES: 4 LIMITATIONS: None. FINDINGS: Spot fluoroscopic images from intramedullary patricio placement in the femur. IMPRESSION: IMAGE(S) OBTAINED DURING PROCEDURE. COMMENT: Quality ID [id number]: Final reports for procedures using fluoroscopy that document radiation exp osure indices, or exposure time and number of fluorographic images (if radiation exposure indices are not available) Please consult full operative report of the attending physician for description of the procedure. TECHNICAL DOCUMENTATION: JOB ID: [id number] 2010 [employer]- All Rights Reserved Reading location - IP/workstation name: [email or web address]
--- NOTE | 2020-09-12 16:34 | Operative Report ---
Operative Report DATE OF SURGERY: 09/12/20 PREOPERATIVE DIAGNOSIS: Right distal femur periprosthetic fracture POSTOPERATIVE DIAGNOSIS: Right distal femur periprosthetic fracture OPERATION: Right distal femur retrograde intramedullary nail SURGEON: ROBIN BARRON ANESTHESIA: GA COMPLICATIONS: None ESTIMATED BLOOD LOSS: 100 cc INTRAOPERATIVE FINDINGS: Same PROCEDURE: Indications for procedure: The patient is a 65-year-old woman who sustained a fall at home resulting in a displaced right periprosthetic supracondylar femur fracture. Description of procedure: Following the induction of a general anesthetic and administration of 2 g of Ancef, the patient was positioned supine on the operating room table. All bony prominences were padded. A tourniquet was not used. The right lower extremity was sterilely prepped with ChloraPrep and draped in standard fashion. A 2 cm incision was made starting at the inferior pole of the patella. The patient's previous total knee arthroplasty incision was used. A sharp incision was performed through skin. Bovie electrocautery was used in the subcutaneous tissues. A medial parapatellar arthrotomy was made. Under intensification a guidewire was placed centrally within the distal femoral fragment. The guidewire was then overreamed. A ball-tipped guidewire was placed down the medullary canal into the proximal fragment to the level of the lesser trochanter. Sequential reaming was performed from a size 9 to a size 13. A 12 mm [place] retrograde nail was placed. Intensification demonstrated correct placement of the implants, correct length of the implants, and excellent reduction of the fracture in both planes. 4 screws were placed into the distal fragment using the Rosemarie guide. Using a perfect circles technique a screw was placed proximally. An end cap was placed onto the nail which serves as a locking mechanism for the most distal screw. Copious irrigation of the arthrotomy was performed as was copious irrigation of all the screw holes. The arthrotomy was closed with 0 Vicryl. Subcutaneous tissue throughout was closed with 2-0 Vicryl. The arthrotomy was closed with a subcuticular 3-0 Monocryl, sterile glue and Steri-Strips. The screw holes were closed with norberto. Sterile dressings were applied throughout. The patient tolerated procedure well without complications and was brought recovery room. Postoperatively she will be started on physical therapy weightbearing as tolerated. Implants: Rosemarie retrograde nail 12 x 360 with end cap.
[2020-09-12] MEDS ORDERED: NORMAL SALINE 1000 ML 1,000 ML IV ONE (17:37)
[2020-09-12] MEDS ORDERED: ZOLPIDEM TARTRATE 5 MG TABLET PO SCH (22:00)
[2020-09-12] MEDS: CEFAZOLIN SODIUM 2 GM in DEXTROSE 5%-WATER 100 ML IV SCH (23:05)
[2020-09-13] MEDS: HYDROMORPHONE HCL INJ/PF 2 MG/ML AMPULE IV PRN ×2 (00:33→12:32)
[2020-09-13] MEDS: OXYCODONE-ACETAMINOPHEN 5-325 MG TABLET PO PRN ×4 (03:31→20:47)
[2020-09-13] MEDS: CEFAZOLIN SODIUM 2 GM in DEXTROSE 5%-WATER 100 ML IV SCH ×2 (05:23→13:45)
[2020-09-13 07:26] LABS: HEMATOCRIT 22.1 % (36.0-47.0); MEAN CORPUSCULAR HEMOGLOBIN 30.2 pg (27.0-33.4); MEAN CORPUSCULAR HGB CONC 34.7 g/dL (32.0-36.0); MEAN CORPUSCULAR VOLUME 87 fl (80-97); PLATELET COUNT 157 10^3/uL (150-450); RED BLOOD COUNT 2.53 10^6/uL (3.72-5.28); RED CELL DISTRIBUTION WIDTH 13.7 % (11.5-14.0); WHITE BLOOD COUNT 7.3 10^3/uL (4.0-10.5)
[2020-09-13 08:03] LABS: HEMOGLOBIN 7.6 g/dL (12.0-15.5)
[2020-09-13] MEDS: DULOXETINE HCL 30 MG CAPSULE.DR PO SCH ×3 (11:20→17:45)
[2020-09-13] MEDS: GABAPENTIN 400 MG CAPSULE PO SCH ×4 (11:20→21:35)
[2020-09-13] MEDS: APIXABAN 2.5 MG TABLET PO SCH ×2 (11:20→17:45)
[2020-09-13] MEDS: ARIPIPRAZOLE 5 MG TABLET PO SCH (11:20)
[2020-09-13] MEDS: CLONAZEPAM 1 MG TABLET PO PRN ×2 (11:23→21:43)
--- NOTE | 2020-09-13 13:23 | PDOC PROGRESS REPORT ---
Subjective Date:: 09/13/20 Subjective:: The patient has relatively minimal discomfort. She was out of bed and walking w ith the therapist. She plans on going home tomorrow. She has made arrangements to have assistance at home from her children and her friend. Reason For Visit: FEMUR FRACTURE Physical Exam Vital Signs: Temp Pulse Resp BP Pulse Ox 98.7 F 80 16 94/54 L 91 L 09/13/20 10:55 09/13/20 10:55 09/13/20 10:55 09/13/20 10:55 09/13/20 10:55 Intake & Output 09/12/20 09/13/20 09/14/20 06:59 06:59 06:59 Intake Total 2675 5358 740 Output Total 700 2200 850 Balance 1975 3158 -110 Weight 70.3 kg 70.3 kg General appearance: PRESENT: no acute distress Head exam: PRESENT: atraumatic Neck exam: PRESENT: full ROM Respiratory exam: PRESENT: clear to auscultation lashay. ABSENT: rales, rhonchi, wheezes Cardiovascular exam: PRESENT: RRR. ABSENT: diastolic murmur, rubs, systolic murmur Musculoskeletal exam: PRESENT: other - The surgical incisions are clean, dry, and intact. There is no evidence of infection. There is minimal discomfort with active and passive motion of the knee. Sensation is intact. 2+ DP and PT pulses. Results Laboratory Results: 09/13/20 06:54 09/11/20 13:45 09/13/20 06:54 WBC 7.3 RBC 2.53 L Hgb 7.6 L D Hct 22.1 L MCV 87 MCH 30.2 MCHC 34.7 RDW 13.7 Plt Count 157 Impressions: Knee X-Ray 09/11/20 00:00 IMPRESSION: Total knee arthroplasty. Comminuted fracture of the femur just above the knee. Femur X-Ray 09/12/20 00:00 IMPRESSION: IMAGE(S) OBTAINED DURING PROCEDURE. Fluoroscopy 09/12/20 00:00 IMPRESSION: IMAGE(S) OBTAINED DURING PROCEDURE. Assessment & Plan - Diagnosis (1) Right knee pain Qualifiers: Chronicity: acute Qualified Code(s): M25.561 - Pain in right knee Is this a current diagnosis for this admission?: Yes (2) Closed supracondylar fracture of right femur Qualifiers: Encounter type: initial encounter Qualified Code(s): S72.451A - Displaced supracondylar fracture without intracondylar extension of lower end of right femur, initial encounter for closed fracture Is this a current diagnosis for this admission?: Yes (3) Depression Qualifiers: Depression Type: dysthymia Qualified Code(s): F34.1 - Dysthymic disorder Is this a current diagnosis for this admission?: Yes (4) Acute postoperative anemia due to expected blood loss Is this a current diagnosis for this admission?: Yes - Time Anticipated Discharge Disposition: Home, Self Care Anticipated Discharge Timeframe: within 24 hours Time Spent: 30 to 50 Minutes Medications reviewed and adjusted accordingly: Yes - Discontinue Ambien s econdary to confusion - Inpatient Certification Medical Necessity: Need for IV Antibiotics - 24 hours of perioperative antibiotics - Plan Summary Plan Summary: Postoperative day #1 status post intramedullary nail for right femur periprosthetic fracture The patient is doing very well. She has ambulated with the therapist and is planning on going home tomorrow. Continue 24 hours of perioperative antibiotics Eliquis for DVT prophylaxis We will discontinue Ambien as it has been causing the patient confusion. The patient will be discharged home tomorrow. There are prescriptions for Percocet and Eliquis in the chart. I have contacted the shoe caser to ensure the patient is discharged with a walker and home physical therapy. The patient will follow-up in the office in 2 to 3 weeks for a wound check.
--- NOTE | 2020-09-13 13:30 | PDOC DISCHARGE SUMMARY ---
Impression - Admit/DC Date/PCP Admission Date/Primary Care Provider: 09/11/20 14:20 PETRONA ARGUETA MD Discharge Date: 09/14/20 - Discharge Diagnosis (1) Right knee pain Is this a current diagnosis for this admission?: Yes (2) Closed supracondylar fracture of right femur Is this a current diagnosis for this admission?: Yes (3) Depression Is this a current diagnosis for this admission?: Yes (4) Acute postoperative anemia due to expected blood loss Is this a current diagnosis for this admission?: Yes - Additional Information Resuscitation Status: Full Code Discharge Diet: As Tolerated Discharge Activity: Activity As Tolerated Referrals: ROBIN BARRON MD [Family Provider] - Home Medications: Eszopiclone [Lunesta] 3 mg PO QHS 07/06/11 Aripiprazole [Abilify 10 mg Tablet] 10 mg PO DAILY 02/17/18 Clonazepam [Klonopin 1 mg Tablet] 1 mg PO Q8HP PRN 02/17/18 Duloxetine HCl [Cymbalta] 30 mg PO TID 02/17/18 Gabapentin [Neurontin] 800 mg PO QID 02/17/18 History of Present Illiness History of Present Illness: Patient is a 65-year-old woman who sustained a fall at home resulting in a d isplaced periprosthetic fracture of her right femur. The patient underwent retrograde intramedullary nail fixation on 09/12/2020. The patient did exceptionally well following surgery and was able to ambulate on postop day #1 with the physical therapist. The patient will be discharged to home with home physical therapy on 09/14/2020. She has been discharged with prescriptions for Percocet for pain and Eliquis for DVT prophylaxis. Hospital Course Hospital Course: See HPI Physical Exam Vital Signs: Temp Pulse Resp BP Pulse Ox 98.7 F 80 16 94/54 L 91 L 09/13/20 10:55 09/13/20 10:55 09/13/20 10:55 09/13/20 10:55 09/13/20 10:55 Intake & Output 09/12/20 09/13/20 09/14/20 06:59 06:59 06:59 Intake Total 2675 5358 740 Output Total 700 2200 850 Balance 1974 3158 -110 Weight 70.3 kg 70.3 kg General appearance: PRESENT: no acute distress, well-developed, well-nourished Neck exam: PRESENT: full ROM Respiratory exam: PRESENT: clear to auscultation lashay. ABSENT: rales, rhonchi, wheezes Cardiovascular exam: PRESENT: RRR. ABSENT: diastolic murmur, rubs, systolic murmur Extremities exam: PRESENT: other - The surgical wounds are cleared, dry, and intact. There is no discomfort with range of motion of the knee. Sensation is intact to touch. 2+ DP and PT pulses. Results Laboratory Results: WBC 7.3 10^3/uL (4.0-10.5) 09/13/20 06:54 RBC 2.53 10^6/uL (3.72-5.28) L 09/13/20 06:54 Hgb 7.6 g/dL (12.0-15.5) L D 09/13/20 06:54 Hct 22.1 % (36.0-47.0) L 09/13/20 06:54 MCV 87 fl (80-97) 09/13/20 06:54 MCH 30.2 pg (27.0-33.4) 09/13/20 06:54 MCHC 34.7 g/dL (32.0-36.0) 09/13/20 06:54 RDW 13.7 % (11.5-14.0) 09/13/20 06:54 Plt Count 157 10^3/uL (150-450) 09/13/20 06:54 Lymph % (Auto) 10.0 % (13-45) L 09/11/20 13:45 Cuming % (Auto) 6.0 % (3-13) 09/11/20 13:45 Eos % (Auto) 0.5 % (0-6) 09/11/20 13:45 Baso % (Auto) 0.6 % (0-2) 09/11/20 13:45 Absolute Neuts (auto) 8.9 10^3/uL (1.7-8.2) H 09/11/20 13:45 Absolute Lymphs (auto) 1.1 10^3/uL (0.5-4.7) 09/11/20 13:45 Absolute Monos (auto) 0.6 10^3/uL (0.1-1.4) 09/11/20 13:45 Absolute Eos (auto) 0.1 10^3/uL (0.0-0.6) 09/11/20 13:45 Absolute Basos (auto) 0.1 10^3/uL (0.0-0.2) 09/11/20 13:45 Seg Neutrophils % 82.9 % (42-78) H 09/11/20 13:45 Sodium 139.5 mmol/L (137-145) 09/11/20 13:45 Potassium 5.1 mmol/L (3.6-5.0) H 09/11/20 13:45 Chloride 107 mmol/L (98-107) 09/11/20 13:45 Carbon Dioxide 28 mmol/L (22-30) 09/11/20 13:45 Anion Gap 5 (5-19) 09/11/20 13:45 BUN 15 mg/dL (7-20) 09/11/20 13:45 Creatinine 0.73 mg/dL (0.52-1.25) 09/11/20 13:45 Est GFR ( Amer) > 60 (>60) 09/11/20 13:45 Est GFR (MDRD) Non-Af > 60 (>60) 09/11/20 13:45 Glucose 94 mg/dL (75-110) 09/11/20 13:45 Calcium 9.1 mg/dL (8.4-10.2) 09/11/20 13:45 Total Bilirubin 0.3 mg/dL (0.2-1.3) 09/11/20 13:45 Direct Bilirubin 0.2 mg/dL (0.0-0.4) 09/11/20 13:45 Neonat Total Bilirubin Not Reportable 09/11/20 13:45 Neonat Direct Bilirubin Not Reportable 09/11/20 13:45 Neonat Indirect Bili Not Reportable 09/11/20 13:45 AST 23 U/L (14-36) 09/11/20 13:45 ALT 14 U/L (<35) 09/11/20 13:45 Alkaline Phosphatase 92 U/L (38-126) 09/11/20 13:45 Total Protein 6.6 g/dL (6.3-8.2) 09/11/20 13:45 Albumin 3.7 g/dL (3.5-5.0) 09/11/20 13:45 Urine Opiates Screen UNCONFIRMED POSITIVE 09/11/20 14:31 Urine Methadone Screen UNCONFIRMED POSITIVE 09/11/20 14:31 Ur Barbiturates Screen NEGATIVE 09/11/20 14:31 Ur Phencyclidine Scrn NEGATIVE 09/11/20 14:31 Ur Amphetamines Screen NEGATIVE 09/11/20 14:31 U Benzodiazepines Scrn NEGATIVE 09/11/20 14:31 Urine Cocaine Screen NEGATIVE 09/11/20 14:31 U Marijuana (THC) Screen NEGATIVE 09/11/20 14:31 Influenza A (RT-PCR) NEGATIVE (NEGATIVE) 09/11/20 14:31 Influenza B (RT-PCR) NEGATIVE (NEGATIVE) 09/11/20 14:31 RSV (RT-PCR) NEGATIVE (NEGATIVE) 09/11/20 14:31 SARS-CoV-2 Rap RNA(RT-PCR) NEGATIVE (NEGATIVE) 09/11/20 14:31 Blood Type A NEGATIVE 09/11/20 13:45 Antibody Screen NEGATIVE 09/11/20 13:45 Impressions: Knee X-Ray 09/11/20 00:00 IMPRESSION: Total knee arthroplasty. Comminuted fracture of the femur just above the knee. Femur X-Ray 09/11/20 13:40 IMPRESSION: Moderately displaced comminuted fracture of the distal femoral metaphysis. Status post right total knee arthroplasty. Femur X-Ray 09/12/20 00:00 IMPRESSION: IMAGE(S) OBTAINED DURING PROCEDURE. Fluoroscopy 09/12/20 00:00 IMPRESSION: IMAGE(S) OBTAINED DURING PROCEDURE. Plan Plan of Treatment: Patient is weightbearing as tolerated with assist device. She has an order for home physical therapy. She is able to shower on postop day #5. She has been provided a prescription for Percocet for pain and for Eliquis for DVT prophylaxis. Time Spent: Less than 30 Minutes Stroke Is this a Stroke Patient?: No Acute Heart Failure Is this a Heart Failure Patient?: No
[2020-09-14] MEDS: OXYCODONE-ACETAMINOPHEN 5-325 MG TABLET PO PRN ×4 (01:39→13:53)
[2020-09-14] MEDS: APIXABAN 2.5 MG TABLET PO SCH (09:51)
[2020-09-14] MEDS: ARIPIPRAZOLE 5 MG TABLET PO SCH (09:51)
[2020-09-14] MEDS: DULOXETINE HCL 30 MG CAPSULE.DR PO SCH ×2 (09:51→13:53)
[2020-09-14] MEDS: GABAPENTIN 400 MG CAPSULE PO SCH ×2 (09:51→13:53)
[2020-09-14 14:19] VITALS: BP 125/90
== END 2020-09-14 15:10 | disposition home health service (06) | DRG 481 ==
LOC: ER 11:49 → EH 14:20 → 5TH 17:37 → 4S 09-12 18:40
PROVIDERS: ADMIT Orthopaedic Surgery; ATTEND Orthopaedic Surgery
PROC: 0QSB36Z Reposition Right Lower Femur with Intramedullary Internal Fixation Device, Percutaneous Approach (ICD-10-PCS; principal; 2020-09-12 14:30)
DX: S72.451A Displaced supracondylar fracture without intracondylar extension of lower end of right femur, initial encounter for closed fracture (principal); D62 Acute posthemorrhagic anemia; M97.11XA Periprosthetic fracture around internal prosthetic right knee joint, initial encounter; W01.0XXA Fall on same level from slipping, tripping and stumbling without subsequent striking against object, initial encounter; F17.200 Nicotine dependence, unspecified, uncomplicated; I10 Essential (primary) hypertension; F31.9 Bipolar disorder, unspecified; M19.90 Unspecified osteoarthritis, unspecified site; F41.9 Anxiety disorder, unspecified; F90.9 Attention-deficit hyperactivity disorder, unspecified type; Z88.8 Allergy status to other drugs, medicaments and biological substances; Z98.84 Bariatric surgery status; Z82.61 Family history of arthritis; Z20.828 Contact with and (suspected) exposure to other viral communicable diseases
CPT/HCPCS: 01230; 36415; 80053; 80307; 85025; 85027; 86850; 86900; 86901; 90471; 90686; 96374; 99285; 0241U; C1713; C1769; C9803; G0008; J0690; J1100; J1170; J2250; J2270; J2405; J2704; J3010; J3490; J7030; J7060